=== PATIENT | female | born 1975 | race African-American/Black ===

== ENCOUNTER → 2022-11-26 | Outpatient (CLI) | payer BC ==
[2022-11-26 12:41] LABS: HEMOGLOBIN 14.4 g/dL (12.0-16.0)
[2022-11-26 13:04] LABS: INR 0.92; PROTHROMBIN TIME 12.6 seconds (11.9-14.5)
[2022-11-26 13:05] LABS: PARTIAL THROMBOPLASTIN TIME 32.1 seconds (23.8-35.5)
[2022-11-26 13:14] LABS: CREATININE, SERUM 0.74 mg/dL (0.57-1.11)
== END ==
LOC: DX 11:47
PROVIDERS: ATTEND Internal Medicine Infectious Disease
DX: Z45.2 Encounter for adjustment and management of vascular access device (principal); M01.X71 Direct infection of right ankle and foot in infectious and parasitic diseases classified elsewhere; B96.5 Pseudomonas (aeruginosa) (mallei) (pseudomallei) as the cause of diseases classified elsewhere; Z79.2 Long term (current) use of antibiotics
CPT/HCPCS: 36415; 36569; 71045; 82565; 84520; 85014; 85049; 85610; 85730